=== PATIENT | male | born 1975 | race Caucasian/White ===

== ENCOUNTER 2019-03-31 16:32 | Emergency (ER) | payer OTHER, SELFPAY ==
[2019-03-31 16:37] VITALS: BP 126/70; PULSE 10; RESP 14; TEMP 36.8; O2SAT 97
--- NOTE | 2019-03-31 17:11 | ED.EYEPROB ---
HPI - Eye Problem General Chief complaint: Eye Problems Stated complaint: Thinks cut left eye ball, clearing brush Time Seen by Provider: 03/31/19 17:05 Source: patient Mode of arrival: Ambulatory Limitations: no limitations History of Present Illness HPI Narrative: This is a 43-year-old male who comes to the emergency department for concern to injury to his left eye. Patient states that he was tunneling or moving through a breath she area when a branch sort of pushed forward and then snapped back towards his eye. He states not really particularly painful maybe a little bit of pressure like he got punched. There is a little bit of redness on the white portion. He denies any decrease in vision. He denies any pain that is significant. Patient states he does not wear glasses other than reading glasses, no contacts, no prior eye surgeries. He states tetanus is up-to-date. He denies any other symptoms currently. Patient denies any other medical issues. This occurred about 2 hours prior to arrival. Related Data Previous Rx's Medication Instructions Recorded ciprofloxacin HCl 2 drop EYE-LEFT Q4H #5 ml 03/31/19 Review of Systems Review of Systems ROS Unobtainable: All systems reviewed & are unremarkable except as noted in HPI and below Exam Narrative Exam Narrative: GEN: well nourished, well appearing male, alert and oriented x 3, patient appears to be in mild distress. HEENT: Atraumatic, pupils are equal round reactive to light, extraocular movements are intact, nares are clear, TMs are clear with no fluid, there is no conjunctival pallor. Throat is clear without any exudates, erythema, tonsillar enlargement or uvular deviation Visual acuity: right [20/20], left [20/20] without correction. IOP: Left 13 mm Hg General: no globe trauma Eyelids: normal inspection, eyelids everted for exam on both Conjunctiva/Sclera: normal inspection except for hemorrhage the left foot are on the left eye at the 3 o'clock position approximately 0.5 cm in size and patchy. Corneas: normal inspection, examined with fluroscein on left patient has a linear diagonal laceration over the area of hemorrhage that appears to be a 0.5 cm in length, there is no fluid drainage, there is no waterfall sign. It does not appear to cross into the cornea and appears to be solely in the area of the sclera. There does not appear to be any corneal uptake noted. EOM: intact, no palsy/entrapment Pupils: PERRL, normal accomadation, pupil normal Anterior Chambers: normal inspection, no hypema Posterior: normal fundoscopic bilaterally HEART: Regular rate and rhythm without murmur, clicks, rubs. LUNGS:Lungs clear to auscultation, no wheezes, rales, crackles, chest moves symmetrically ABD:bowel sounds normal, soft, non-tender, no guarding, rebound, rigidity, no masses noted, no hepatosplenomegaly MSCL: full range of motion, normal gait NEURO:CN 2-12 intact, sensation normal. SKIN: No rash, no abrasions or skin changes. Initial Vital Signs Initial Vital Signs: Vital Signs Temperature 98.2 F 03/31/19 16:37 Pulse Rate 10 L 03/31/19 16:37 Respiratory Rate 14 03/31/19 16:37 Blood Pressure 126/70 03/31/19 16:37 Pulse Oximetry 97 03/31/19 16:37 Course Orders Ordered: Discontinued Medications Fluorescein Sodium (Ful-Anupama) 1 mg EYE-LEFT NOW ONE Stop: 03/31/19 17:08 Last Admin: 03/31/19 17:44 Dose: 1 mg Documented by: GREG Proparacaine HCl (Parcaine 0.5% Ophth Kyara) 1 drops EYE-LEFT NOW ONE Stop: 03/31/19 17:08 Last Admin: 03/31/19 17:43 Dose: 1 drops Documented by: GREG Vital Signs Vital signs: Vital Signs - 8 hr 03/31/19 16:37 Temperature 98.2 F Pulse Rate 10 L Respiratory Rate 14 Blood Pressure 126/70 Pulse Oximetry 97 MDM - Eye Problem MDM Narrative Medical decision making narrative: Patient does not have any signs of globe rupture. He does have potential for laceration from an organic matter and was started on antibiotic eye drops with plan for close follow-up with Ophthalmology. Patient was asked to follow up next 24 hours and call to see Ophthalmology this week. Patient is to start antibiotic drops today. We discussed strict return precautions which patient was able to express understanding. tetanus up to date. Discharge Plan Departure Patient Disposition: Home Clinical Impression: Abrasion of sclera of left eye Qualifiers: Encounter type: initial encounter Qualified Code(s): S05.8X2A - Other injuries of left eye and orbit, initial encounter Discharge Date/Time: 03/31/19 17:47 Instructions: DI for Corneal Abrasion Activity Restrictions/Additional Instructions: Follow-up with ophthalmology tomorrow, call 1st thing in the morning for an appointment. Contact information as below. Use antibiotic eyedrops as prescribed. Return to the ER for fevers greater 100.4 F, increasing pain in your eye, severe headaches, decrease or loss of vision, drainage from the eye particularly purulence or white, yellow or color drainage, increasing redness, or hemorrhage in the sclera or white portion of the eye or over the cornea or other new or concerning symptoms. Prescriptions: New ciprofloxacin HCl 0.3 % drops 2 drop EYE-LEFT Q4H Qty: 5 RF: 0 Referrals: Musa Feldman MD [Physician] - Stand Alone Forms: Work Release Note
[2019-03-31] MEDS: PROPARACAINE 0.5% OPHTH SOL 1 DROPS EYE-LEFT (17:43)
[2019-03-31] MEDS: FLUORESCEIN 1 MG STRIP EYE-LEFT (17:44)
== END 2019-03-31 17:47 | disposition home or self-care (01) ==
PROVIDERS: Emergency Provider Emergency Medicine
DX: S05.8X2A Other injuries of left eye and orbit, initial encounter (principal)
CPT/HCPCS: 99282

== ENCOUNTER 2019-04-17 15:57 | Emergency (ER) | payer OTHER, SELFPAY ==
[2019-04-17 16:04] VITALS: BP 122/63; PULSE 88; RESP 16; TEMP 36.4; O2SAT 98; BMI 27.8
--- NOTE | 2019-04-17 16:32 | ED_ITS ---
HPI - Ear Problem General Chief complaint: Ear Stated complaint: right ear wants checked Time Seen by Provider: 04/17/19 16:00 Source: patient Mode of arrival: Ambulatory Limitations: no limitations History of Present Illness HPI Narrative: 43-year-old male nonsmoker with no significant medical history presents with a chief complaint of painless hearing loss in his right ear upon waking this morning. He denies any recent illness such as runny nose, sore throat or cough. He denies any injury or new medications. 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 He was on compressed air and states it was a very routine [place] he had no symptoms upon ascent. MD Complaint: decreased hearing Location: right ear Duration: constant Severity: severe Relieving factors: nothing Exacerbating factors: nothing Discharge from ear: no Treatment prior to arrival: none Related Data Previous Rx's Medication Instructions Recorded ciprofloxacin HCl 2 drop EYE-LEFT Q4H #5 ml 03/31/19 Allergies Allergy/AdvReac Type Severity Reaction Status Date / Time No Known Drug Allergies Allergy Verified 04/17/19 16:09 Review of Systems Constitutional Constitutional: Denies chills, Denies fatigue, Denies fever(s), Denies frequent falls, Denies lethargy and Denies weakness Eyes Eyes: Denies change in vision, Denies eye discharge, Denies irritation and Denies loss of vision ENT Ears, Nose, Mouth, and Throat: Denies change in voice, Denies dizziness, Denies neck pain, Denies sore throat and Denies throat swelling Cardiovascular Cardiovascular: Denies chest pain, Denies irregular heart rhythm, Denies lightheadedness, Denies palpitations, Denies dyspnea, Denies dyspnea on exertion and Denies orthopnea Respiratory Respiratory: Denies cough, Denies dyspnea, Denies dyspnea on exertion and Denies wheezing Gastrointestinal Gastrointestinal: Denies abdominal pain, Denies change in bowel habits, Denies diarrhea, Denies nausea and Denies vomiting Genitourinary Genitourinary: Denies hematuria, Denies flank pain, Denies urinary incontinence and Denies urinary urgency Musculoskeletal Musculoskeletal: Denies back pain, Denies muscle weakness, Denies neck pain, Denies numbness and Denies tingling Integumentary/Breasts Skin/Breast: Denies pruritus, Denies erythema, Denies rash and Denies wounds Neurologic Neurologic: Denies behavioral changes, Denies confusion, Denies dizziness, Denies frequent falls, Denies loss of vision, Denies numbness, Denies tingling and Denies weakness Psychiatric Psychiatric: Denies anxiety, Denies behavioral changes, Denies confusion, Denies depression, Denies homicidal ideation and Denies suicidal ideation Endocrine Endocrine: Denies fatigue, Denies flushing and Denies palpitations Hematologic/Lymphatic Hematologic/Lymphatic: Denies easy bruising Allergic/Immunologic Allergic/Immunologic: Denies urticaria, Denies throat swelling and Denies wheezing Patient History Social History Smoking Status: Never smoker Smoking Status: Never smoker alcohol intake frequency: a few times a week Substance Use Type: does not use Exam Narrative Exam Narrative: GEN: AOx3 and in mild distress EYES: Pupils are equal, round, and reactive to light and accommodation. Extraoccular muscles are intact bilaterally. There is no subconjunctival hemorrhage or exudate. EARS: L TM clear. R TM obscured by cerumen impaction. Able to visualize after nursing removes cerumen CHEST: Lungs are clear to auscultation bilaterally and free of wheezes, rales, or rhonchi. Heart rate is regular rhythm, there are no murmurs, clicks, rubs, or gallops. There is no chest wall tenderness. ABD: Abdomen is soft and nontender. There is no guarding or rebound. Bowel sounds are normal in all 4 quadrants. There is no mass or organomegaly. EXT: Full painless ROM of all extremities with no loss of sensation or strength. SKIN: Warm, pink, and dry. No erythema or rash Initial Vital Signs Initial Vital Signs: Vital Signs Temperature 97.5 F L 04/17/19 16:04 Pulse Rate 88 04/17/19 16:04 Respiratory Rate 16 04/17/19 16:04 Blood Pressure 122/63 04/17/19 16:04 Pulse Oximetry 98 04/17/19 16:04 Course Orders Ordered: Discontinued Medications Hydrogen Peroxide/Benzyl Alcohol (Hydrogen Peroxide) 15 ml TOP NOW ONE Stop: 04/17/19 16:45 Last Admin: 04/17/19 17:10 Dose: 15 ml Documented by: RADHA Vital Signs Vital signs: Vital Signs - 8 hr 04/17/19 16:04 04/17/19 16:43 Temperature 97.5 F L Pulse Rate 88 85 Respiratory Rate 16 16 Blood Pressure 122/63 Blood Pressure [Left Arm] 117/71 Pulse Oximetry 98 97 Medical Decision Making MDM Narrative Medical decision making narrative: patient reports painless hearing loss which completely returns upon successful removal of cerumen impaction Discharge Plan Departure Patient Disposition: Home Clinical Impression: Excessive cerumen in ear canal Qualifiers: Laterality: right Qualified Code(s): H61.21 - Impacted cerumen, right ear Discharge Date/Time: 04/17/19 17:17 Instructions: Cerumen Impaction Activity Restrictions/Additional Instructions: *You have been diagnosed with [cerumen impaction] *What to do: *Take medications as directed *Follow up with your primary care provider in 2-3 days, call for an appointment. Let them know you were seen in the Emergency Department and that we ask that you be seen in follow up *Return to ER if you should have any new, worsening or concerning symptoms Prescriptions: No Action ciprofloxacin HCl 0.3 % drops 2 drop EYE-LEFT Q4H Qty: 5 RF: 0
[2019-04-17 16:43] VITALS: BP 117/71; PULSE 85; RESP 16; O2SAT 97
[2019-04-17] MEDS: HYDROGEN PEROXIDE 473 ML SOLUTION 15 ML TOP (17:10)
== END 2019-04-17 17:17 | disposition home or self-care (01) ==
PROVIDERS: Emergency Provider Emergency Medicine
DX: H61.21 Impacted cerumen, right ear (principal)
CPT/HCPCS: 69209; 99284

== ENCOUNTER → 2020-07-26 11:15 | Outpatient (CLI) | payer OTHER, SELFPAY ==
--- NOTE | 2020-07-26 | DI.MRI.S_ITS ---
PROCEDURE: MR KNEE RT WO CON INDICATIONS: pain in right knee TECHNIQUE: Noncontrast sagittal PD fast spin echo and T2 fast spin echo with fat saturation, sagittal 3-D FLASH with fat saturation; coronal T1 spin echo and PD fast spin echo with fat saturation, and axial PD fast spin echo with fat saturation through the knee. COMPARISON: None. FINDINGS: Image quality: Excellent. Menisci: There is complex tearing of the posterior horn and body of the medial meniscus with a deep radial component at the posterior horn and a horizontal oblique component in the meniscal body extending to the inner third of the femoral articular surface. The lateral meniscus is intact. There is no meniscal extrusion. Cruciate ligaments: The anterior and posterior cruciate ligaments appear intact. Medial structures: The medial collateral ligament appears mildly thickened proximally, compatible with a remote prior sprain. The semimembranosus tendon insertions and meniscocapsular junction appear intact. Visualized portions of the pes anserinus tendons appear normal. No abnormal bursal fluid. Lateral structures: The lateral collateral ligament, long and short heads of the biceps femoris tendon appear intact. The popliteus tendon appears intact. No signs of posterolateral corner injury. Iliotibial band appears normal. Anterior structures: The quadriceps and patellar tendons appear intact. Patellar alignment is normal. No femoral trochlear dysplasia or ventral trochlear prominence. No edema in the infrapatellar fat pad. Bones and cartilage: No bone marrow contusions or fractures. The articular cartilages in the medial compartment are intact. There is deep cartilage fissuring with adjacent cartilage delamination measuring approximately 8 x 7 mm in the central portion of the lateral tibial plateau. The cartilage fissuring is seen at the median ridge/lateral facet of the patella and the trochlear groove, and there is more shallow cartilage fissuring in the medial patellar facet. Joint space: There is a physiologic amount of joint fluid. A small medial popliteal cyst is present. IMPRESSION: 1. Complex tear of the medial meniscus with a deep radial component at the posterior horn and a horizontal oblique component at the meniscal body extending to the inner third of the femoral articular surface. 2. Chronic low-grade sprain of the proximal medial collateral ligament. 3. Deep cartilage fissuring and delamination in the central portion of the lateral tibial plateau. Multifocal deep cartilage fissuring is also seen in the anterior compartment. 4. Small medial popliteal cyst. Dictated by: Bam Boo M.D. on 07/26/2020 at 12:21 Approved by: Bam Boo M.D. on 07/26/2020 at 12:35
== END ==
PROVIDERS: Referring Provider Family Medicine; Visit Provider Family Medicine
DX: M25.561 Pain in right knee (principal)
CPT/HCPCS: 73721